=== PATIENT | female | born 1995 | race African-American/Black ===

== ENCOUNTER → 2017-09-28 09:30 | Outpatient (CLI) | payer OTHER, SELFPAY ==
[2017-09-28 11:12] LABS: Hematocrit 31.8 % (36-46); Hemoglobin 11.2 g/dL (12.0-16.0)
[2017-09-28 11:50] LABS: GTT (PREG) 1 Hour PP 50gm Dose 117 mg/dL (76-139)
[2017-09-29 14:07] LABS: HSV 2 IGG AB < 0.90 index (< 0.90); HSV1IGG < 0.90 index (< 0.90)
== END ==
PROVIDERS: PCP Family Medicine; Visit Provider Family Medicine
DX: Z34.03 Encounter for supervision of normal first pregnancy, third trimester (principal); Z3A.28 28 weeks gestation of pregnancy
CPT/HCPCS: 36415; 82950; 85014; 85018; 86695; 86696; 86850; 86900; 86901; 87086

== ENCOUNTER 2017-10-06 09:58 | Emergency (ER) | payer OTHER, SELFPAY | END 2017-10-06 13:42 | disposition home or self-care (01) | LOC: ED 08-16 07:39 | PROVIDERS: Emergency Provider Nurse Practitioner; PCP Family Medicine | DX: S39.012A Strain of muscle, fascia and tendon of lower back, initial encounter (principal); M79.1 Myalgia; V49.40XA Driver injured in collision with unspecified motor vehicles in traffic accident, initial encounter | CPT/HCPCS: 99283 ==

== ENCOUNTER 2017-10-06 09:58 | Emergency (ER) | payer OTHER, SELFPAY ==
[2017-10-06 10:03] VITALS: BP 119/69; PULSE 63; RESP 18; TEMP 36.7; O2SAT 97
[2017-10-06 10:59] VITALS: BP 114/64; PULSE 71; RESP 14; O2SAT 99
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
[2017-10-06 13:37] VITALS: BP 115/60; PULSE 72; RESP 15; O2SAT 100
--- NOTE | 2017-10-06 16:55 | PM.PROC.1 ---
Procedures Date/Time Date of procedure: 10/06/17 Time of procedure: 16:55
== END 2017-10-06 13:42 | disposition home or self-care (01) ==
PROVIDERS: Emergency Provider Nurse Practitioner; PCP Family Medicine
DX: S39.012A Strain of muscle, fascia and tendon of lower back, initial encounter (principal); M79.1 Myalgia; V49.40XA Driver injured in collision with unspecified motor vehicles in traffic accident, initial encounter
CPT/HCPCS: 99283

== ENCOUNTER → 2017-11-10 09:49 | Outpatient (CLI) | payer OTHER, SELFPAY ==
--- NOTE | 2017-11-10 09:51 | DI.US.S_ITS ---
PROCEDURE: US OB LIMITED INDICATIONS: MACROSOMIA OUTSIDE/PRIOR DATING DATA: Last menstrual period (LMP): 03/19/17. LMP-based estimated date of delivery (DANILO): 12/24/17. First dating scan (date and location): 08/05/17. Estimated date of delivery (DANILO) from first dating scan: 12/18/17. TECHNIQUE: Real-time scanning was performed of the fetus, with image documentation and biometric measurements. COMPARISON: [facility], , OB COMPLETE, 08/05/2017, 8:56. FINDINGS: General: A single living intrauterine gestation is present. Presentation: Vertex. Placenta: Placental position is anterior, without previa. Lower placental edge 2 cm or less from internal cervical os qualifies as low lying placenta. Amniotic fluid index: 9 cm, normal range is 5-24 cm. heart rate: 140 beats per minute. Maternal cervical canal: Not well-seen. biometrics: Biparietal diameter: 8.5 cm 34 weeks one day Head circumference: 29.8 cm 33 weeks zero days Abdominal circumference: 28.3 cm 32 weeks 3 days Femur length: 6.5 cm 33 weeks 5 days Estimated gestational age from initial scan: 34 weeks 4 days Composite gestational age from present scan: 33 weeks 2 days Estimated weight and percentile: 2094g 10th percentile. Previous weight was 386 g, 94th percentile Measurement variability for biometric dating: +/- 7 days from 14 weeks to 15 weeks 6 days gestation, +/- 10 days from 16 weeks to 21 weeks 6 days gestation, +/- 2 weeks from 22 weeks to 27 weeks 6 days gestation, +/- 3 weeks for 28 weeks gestation or later. weight reference: 4500 g or EFW >90/95% is considered macrosomia or large for gestational age. EFW <10% is small for gestational age. EFW 5% or less is considered intra-uterine growth restriction. Other: Severe right maternal hydronephrosis is present.. IMPRESSION: 1. Single live intrauterine with ultrasound gestational age day of 33 weeks 2 days compared to 34 weeks 4 days from initial ultrasound. Ultrasound DANILO is unchanged at 12/18/17. 2. It is noted on prior exam dated 08/05/17 at weight is at the 94th percentile. Today's exam demonstrates weight at the 10th percentile concerning for intrauterine growth restriction. Clinical and interval imaging followup is recommended. Dictated by: Chanda Candelario M.D. on 11/10/2017 at 13:40 Approved by: Chanda Candelario M.D. on 11/10/2017 at 13:46
== END ==
PROVIDERS: PCP Family Medicine; Visit Provider Family Medicine
DX: O36.63X0 Maternal care for excessive fetal growth, third trimester, not applicable or unspecified (principal); Z3A.33 33 weeks gestation of pregnancy
CPT/HCPCS: 76815

== ENCOUNTER → 2017-12-07 14:51 | Outpatient (CLI) | payer OTHER, SELFPAY ==
[2017-12-08 14:21] LABS: Strep Grp B PCR POS for Grp B Strep
== END ==
PROVIDERS: PCP Family Medicine; Visit Provider Family Medicine
DX: Z3A.36 36 weeks gestation of pregnancy (principal)
CPT/HCPCS: 87653

== ENCOUNTER 2017-12-12 02:49 | Inpatient (IN) | payer OTHER, SELFPAY ==
[2017-12-12 03:38] VITALS: BP 119/76
[2017-12-12 03:44] LABS: Add Manual Diff / Slide Review NO; Basophils Percent Auto 0.3 % (0-2); Eosinophils Percent Auto 0.5 % (2-4); Hematocrit 38.1 % (36-46); Hemoglobin 13.4 g/dL (12.0-16.0); Lymphocytes Percent Auto 9.4 % (25-40); Mean Corpuscular HGB Conc 35.2 % (30-36); Mean Corpuscular Hemoglobin 32.7 PG (26-34); Mean Corpuscular Volume 92.9 fL (80-100); Neutrophils Absolute Auto 7700 /uL (3000-5900); Neutrophils Percent Auto 85.8 % (50-75); Platelet Count 203 X10^3/uL (150-400); Red Cell Distribution Width 11.9 % (11.6-14.8); White Blood Cell Count 8.9 X10^3/uL (4.5-11.0)
[2017-12-12] MEDS: LACTATED RINGERS 1,000 ML 125 ML IV (03:45)
[2017-12-12] MEDS: PENICILLIN G POTASSIUM 5,000,000 UNIT in DEXTROSE 5% IN WATER 250 ML IV (04:00)
--- NOTE | 2017-12-12 07:37 | P.HPOB_ITS ---
OB HPI Date/Time Date of admission: 12/12/17 Date Patient Seen: 12/12/17 Time Patient Seen: 07:34 History of Present Illness Chief complaint: EVALUATION OF LABOR : 1 Para: 0 Estimated Date of Delivery: 12/24/17 Estimated Gestational Age (weeks): 38w2d Narrative: Rachael Boggs is a 22 year old female, at 38 and 2 weeks gestation in active labor. On presentation to the center patient was 5 cm and requesting an epidural. At 5 AM patient was 8 cm with a bulging bag. Patient received regular care. Transferred care from the [facility] at 27 weeks. 20 wk US showed fetus at the 94% for weight with otherwise normal anatomy. Follow up US at 34 weeks showed fetus at 10% for weight. Due to the large discrepancy in growth, patient saw Maternal Medicine who felt growth was appropriate and did not recommend further work up. Remainder of unremarkable. History of Present care: good care Dating criteria: LMP confirmed by 1st trimester US Ultrasounds: normal mid trimester US (Normal anatomy) Obstetrical complications: none Medical complications: none Preadmission Labs Blood type: O (+) positive -: Antibody screen: negative, GBS status: positive, HBsAG: negative, HIV: negative, HSV 1: negative, HSV 2: negative and RPR/VDLR: negative -: Chlamydia screen: not detected and Gonorrhea screen: not detected -: Rubella: immune and Varicella: immune HCT: 36 HCAB: negative PAP: Normal Quad screen: Normal Urine: Negative 1 hr GTT: 117 Evaluation Evaluation Baseline heart rate: 135 Variability: Moderate (11-25) monitor accelerations: Present monitor decelerations: Variable (Rare, small variables) Contraction Frequency (minutes): 3 Uterine Contraction Intensity: Strong/Firm Category of Tracing: II Cervical dilation (cm): 10 Cervical effacement (%): 100 station: 0 Laboratory results: Laboratory Tests 12/12/17 12/12/17 03:30 03:30 WBC 8.9 RBC 4.10 Hgb 13.4 Hct 38.1 MCV 92.9 MCH 32.7 MCHC 35.2 RDW 11.9 Plt Count 203 Neut % (Auto) 85.8 H Lymph % (Auto) 9.4 L [place] % (Auto) 4.0 Eos % (Auto) 0.5 L Baso % (Auto) 0.3 Neut # (Auto) 7700 H Blood Type O Positive Antibody Screen Negative PFSH Medical History H/O wisdom tooth extraction (Acute) Family History Father Diabetes mellitus Social History marital status: unmarried,living together occupational status: employed Smoking Status: Never smoker alcohol intake: former substance use type: does not use additional social history: Currently in the [employer] along with boyfriend Meds Home Medications Medication Instructions Recorded Confirmed Type [id number] fum-folic 1 tab PO DAILY 10/06/17 10/06/17 History ranitidine HCl 150 mg PO BID 10/06/17 10/06/17 History Allergies Allergy/AdvReac Type Severity Reaction Status Date / Time No Known Drug Allergies Allergy Verified 12/12/17 03:14 Review of Systems Review of Systems All systems reviewed & are unremarkable except as noted in HPI and below Exam Vital Signs (past 8 hours): - 12/12/17 03:38 Blood Pressure 119/76 Const General: healthy appearing and comfortable Orientation: alert, awake and oriented x3 HENMT Head: normal to inspection Ears: hearing grossly normal bilaterally Nose: external nose normal Face and sinus: normal facial exam Mouth: oral mucosae normal Teeth and gingiva: dentition normal Throat: posterior oropharynx normal Eyes General: appearance normal, both eyes and all related structures Alignment and Position: alignment normal Conjunctivae: conjunctivae normal EOM: EOM intact bilaterally Neck Neck: normal visual inspection Resp Effort & Inspection: normal respiratory effort Auscultation: clear to auscultation bilaterally Cardio Rate: regular rate Rhythm: regular rhythm Manual OB Exam: dilated 10, effaced fully and station 0 Presentation: vertex Estimated Weight (lbs): 6 Amniotic Fluid: clear Extrem General: normal to inspection and no pedal edema Objective Labs Result Diagrams: 12/12/17 03:30 Labs: Laboratory Results - last 24 hr 12/12/17 12/12/17 03:30 03:30 WBC 8.9 RBC 4.10 Hgb 13.4 Hct 38.1 MCV 92.9 MCH 32.7 MCHC 35.2 RDW 11.9 Plt Count 203 Neut % (Auto) 85.8 H Lymph % (Auto) 9.4 L [place] % (Auto) 4.0 Eos % (Auto) 0.5 L Baso % (Auto) 0.3 Neut # (Auto) 7700 H Blood Type O Positive Antibody Screen Negative Assessment and Plan (1) 38 weeks gestation of : Current visit: Yes Status: Acute (2) Group B streptococcal infection during : Current visit: Yes Status: Acute Plan: Plan: 22 year old at 38+2 wks in active labor. GBS positive. AROM clear. Plan - Epidural working well - GBS prophylaxis - Expectant management, anticipate
[2017-12-12] MEDS: PENICILLIN G POTASSIUM 3,000,000 UNIT/50 ML FROZ.PIGGY 100 UNIT IV (07:49)
--- NOTE | 2017-12-12 09:59 | P.PCNOB_ITS ---
Delivery date: 12/12/17 Intrapartal events: None Induction method: none Delivery augmentation: rupture of membranes Delivery monitor: external FHT Route of delivery: Laceration description: Labial (First-degree right labial laceration) Delivery repair: vicryl Estimated blood loss (mL): 250 Anesthesia type: Epidural Narrative: BRIEF HISTORY: Patient is a 22-year-old now 1 at 38w2d weeks who gave on 12/12/17 at 9:26 a.m. DANILO: 12/24/17 Hospital problems: 38 weeks of GBS positive Epidural anesthesia STAGE I: Labor Regular contractions began at home at 11:00 p.m. on 12/11/17. When patient arrived to the center she was 5 cm dilated. Labor progressed spontaneously to complete at 8:28 a.m.. AROM performed at 8:28 a.m. with clear fluid. Epidural analgesia. heart tones category two throughout the first stage of labor due to intermittent variable decelerations. STAGE II: Delivery The second stage of labor lasted 58 min. Delivery occurred at 9:26 a.m.. was vertex and right occiput posterior without a nuchal cord though the cord was folded near the face. Infant was vigorous at with Apgars of nine and nine at one and 5 min. heart tones were category two throughout the second stage of labor due to variable decelerations with pushing. STAGE III: Placenta/Cord The third stage of labor lasted 3 min. Placenta delivered spontaneously at 9: 29 a.m. after active management intact with a three-vessel cord. Calcifications noted throughout placenta. There was a first-degree right labial laceration which was repaired with 4-0 Vicryl. Hemostasis achieved. EBL: 250 mL. Needle and sponge counts were correct. The vagina was inspected and no items were left in situ. Patient was doing well with Leonel , her and boyfriend at bedside.
[2017-12-12] MEDS: IBUPROFEN 600 MG TABLET PO ×2 (11:49→18:36)
[2017-12-12] MEDS: DOCUSATE 250 MG CAPSULE PO (11:50)
[2017-12-12] MEDS: DERMOPLAST SPRAY 20% 60 ML 1 SPRAY TOP (18:41)
[2017-12-12] MEDS: OXYCODONE/ACETAMINOPHEN 5/325 TABLET 1 TAB PO (23:35)
[2017-12-12] MEDS: LANOLIN OINT 7 GM 1 APPLIC TOP (23:38)
[2017-12-13] MEDS: DOCUSATE 250 MG CAPSULE PO (07:55)
[2017-12-13] MEDS: IBUPROFEN 600 MG TABLET PO ×2 (07:55→14:23)
[2017-12-13] MEDS: OXYCODONE/ACETAMINOPHEN 5/325 TABLET 1 TAB PO (11:24)
[2017-12-13 13:08] VITALS: BP 119/76; PULSE 76; RESP 16; TEMP 36.6
--- NOTE | 2017-12-13 13:10 | P.DS_ITS ---
Discharge Providers Date of admission: 12/12/17 03:12 Primary care physician: Nery Painter DO Consults: 12/12/17 10:21 Consult to Auto Air Conditioning Installer Routine Comment: Discharge provider: Nery Painter DO Discharge Date: 12/13/17 Summary Date Patient Seen: 12/13/17 Time Patient Seen: 12:25 Discharge Diagnosis (1) 38 weeks gestation of : Status: Acute (2) Group B streptococcal infection during : Status: Acute (3) (spontaneous vaginal delivery): Status: Acute Status at Discharge Functional status at discharge: independent ambulation Overall status at discharge: patient is back to baseline Time Spent with Patient Total time spent providing and/or coordinating discharge services: Less than 30 minutes Objective Labs Result Diagrams: 12/12/17 03:30 Discharge Plan Discharge Plan Patient Disposition: Home, Self-Care Discharge Med Rec/Prescriptions Prescriptions: New ibuprofen 600 mg Tablet 600 mg PO Q6HR PRN (Reason: Pain, Mild (1-3)) Qty: 30 RF: 0 docusate sodium 250 mg Capsule 250 mg PO DAILY Qty: 30 RF: 0 Continue ranitidine HCl 150 mg tablet 150 mg PO BID RF: 0 [id number] fum-folic 27 mg iron- 800 mcg tablet 1 tab PO DAILY RF: 0 Follow up/Referrals: Nery Painter DO [Primary Care Provider] - 6 Weeks (please follow up with Dr. Painter on ) Visit Report/Discharge Packet Stand Alone Forms: Discharge: Care Visit Report Forms: Stroke Signs & Symptoms Discharge Data Primary Care Provider: Nery Painter Attending Provider: Nery Painter Admit Date/Time: 12/12/17 03:12 Discharges patient from system. Discharge Date/Time: 12/13/17 14:34
== END 2017-12-13 14:34 | disposition home or self-care (01) | DRG 775 ==
PROVIDERS: Admitting Provider Family Medicine; PCP Family Medicine; Visit Provider Family Medicine
DX: O99.824 Streptococcus B carrier state complicating childbirth (principal); Z3A.38 38 weeks gestation of pregnancy; Z37.0 Single live birth; O70.0 First degree perineal laceration during delivery
CPT/HCPCS: 01967; 59050; 59410; 85025; 86850; 86900; 86901; G0378; G0379; J2540

== ENCOUNTER 2019-06-16 10:25 | Emergency (ER) | payer OTHER, SELFPAY ==
[2019-06-16 10:34] VITALS: BP 116/71; PULSE 73; RESP 16; TEMP 36.8; O2SAT 100; BMI 24.1
--- NOTE | 2019-06-16 11:09 | ED.URI ---
HPI - URI/Sore Throat General Chief Complaint: Upper Respiratory Symptoms Stated Complaint: strep Time Seen by Provider: 06/16/19 11:01 Source: patient Mode of arrival: Ambulatory History of Present Illness HPI Narrative: CC: Sore throat HPI: The patient is a 23-year-old female who presents to the emergency department with a sore throat that she believes is strep throat. She states that it feels today the same as it did 6 months ago when she had strep throat. The patient states that the sore throat developed Wednesday and woke her from sleep. She denies a history of diabetes mellitus or asthma. She does not smoke cigarettes use marijuana but does drink alcohol. She has had no fever chills sweats nasal drainage sinus drainage. She received her influenza vaccine earlier in the fall. She denies any headache chest pain shortness of breath cough palpitations dizziness muscle aches or joint aches back aches. She does complain that her neck however aches. She has had no nausea no vomiting no diarrhea no troubles urinating. Related Data Home Medications Medication Instructions Recorded Confirmed bupropion HCl 100 mg PO BID 06/16/19 06/16/19 fluoxetine 20 mg PO DAILY 06/16/19 06/16/19 norethindrone-e.estradiol-iron 1 tab PO DAILY 06/16/19 06/16/19 [ FE .09/29 (28)] trazodone 100 mg PO BEDTIME 06/16/19 06/16/19 Previous Rx's Medication Instructions Recorded amoxicillin 500 mg PO TID #30 cap 06/16/19 ibuprofen 600 mg PO Q6H PRN #20 tab 06/16/19 Allergies Allergy/AdvReac Type Severity Reaction Status Date / Time No Known Drug Allergies Allergy Verified 06/16/19 10:34 Review of Systems Review of Systems Narrative: Review of systems were negative except for those mentioned in the history of present illness. Patient History Medical History Spontaneous vaginal delivery (Resolved) Surgical History H/O wisdom tooth extraction (Acute) Family History Father Diabetes mellitus Social History marital status: unmarried,living together education level: high school occupational status: employed Smoking Status: Never smoker alcohol intake: former substance use type: does not use additional social history: Currently in the [place] along with boyfriend Smoking Status: Never smoker Substance Use Type: does not use Exam Narrative Exam Narrative: PHYSICAL EXAM: CONSTITUTIONAL: Awake, Alert, Oriented, Coherent, Cooperative in NAD. Does not appear toxic or ill. HEAD: AT/NC EENT: PERRL, FROM of eyes, no discharge. No drainage from the ears, Tympanic membranes intact bilaterally, withou erythema, clear EAC No epistaxis or nasal drainage Oral mucosa is moist and pink, posterior pharynx is without any significant erythema or exudate. NECK: Supple, no obvious JVD, Trachea is midline without stridor, no palpable LN or masses. The patient's anterior cervical triangles were tender to palpation without discrete mass being palpable. SPINE: No gross deformity, no palpable tenderness of the cervical, thoracic, lumbar or sacral spine. No CVA tenderness. THORAX: No deformity, retractions, chest wall tenderness,.. LUNGS: Clear with symmetrical breath sounds without respiratory distress HEART: Normal heart tones, regular rhythm and rate without murmur. ABDOMEN: Soft, non-tender, normal bowel sounds without guarding, rebound, rigidity or palpable mass. EXTREMITIES: No edema, cyanosis, deformity or tenderness. SKIN: No rash, bruising, petechiae or purpura. NEURO: Awake, alert, oriented, conversive, no focal facial asymmetry/cranial nerves II-XII are symmetrical, moves all 4 extremities and is ambulatory Initial Vital Signs Initial Vital Signs: Vital Signs Temperature 98.2 F 06/16/19 10:34 Pulse Rate 73 06/16/19 10:34 Respiratory Rate 16 06/16/19 10:34 Blood Pressure 116/71 06/16/19 10:34 Pulse Oximetry 100 06/16/19 10:34 Course Course Course Narrative: The patient is 23-year-old female who presented to the emergency department with a sore throat thinking that she had strep throat. A rapid strep screen was performed at which was positive and the patient was treated with amoxicillin. She was given a prescription for amoxicillin 500 mg 3 times a day for the next 10 days. She was advised to follow-up with her primary care physician. She was also given a prescription for ibuprofen 600 mg to 6 hours as needed for pain discomfort and fever. Orders Ordered: Discontinued Medications Amoxicillin (Trimox) 500 mg PO NOW ONE Stop: 06/16/19 11:12 Last Admin: 06/16/19 11:34 Dose: 500 mg Documented by: TARYN Vital Signs Vital signs: Vital Signs - 8 hr 06/16/19 10:34 Temperature 98.2 F Pulse Rate 73 Respiratory Rate 16 Blood Pressure 116/71 Pulse Oximetry 100 MDM - URI/Sore Throat Medical Records Attestation: I reviewed the patient's medical records. Lab Data Attestation: I reviewed the patient's lab results. Labs: Point of Care Testing Rapid Strep A Positive Discharge Plan Departure Patient Disposition: Home Clinical Impression: Strep pharyngitis Discharge Date/Time: 06/16/19 11:38 Instructions: DI for Strep Throat Activity Restrictions/Additional Instructions: You guille gragle with hot salt water: 1 tsp of salt in a 10 oz glass of water. ibuprofen 600 mg orally every 6 hours for pain discomfort aches and headache. Take the amoxicillin 3 times a day until gone. Follow up with her primary care physician as needed. Prescriptions: New amoxicillin 500 mg capsule 500 mg PO TID Qty: 30 RF: 0 ibuprofen 600 mg tablet 600 mg PO Q6H PRN (Reason: fever or pain) Qty: 20 RF: 0 No Action norethindrone-e.estradiol-iron [ ()] 1.5 mg-30 mcg (21)/75 mg (7) tablet 1 tab PO DAILY RF: 0 trazodone 50 mg tablet 100 mg PO BEDTIME RF: 0 bupropion HCl 100 mg tablet 100 mg PO BID RF: 0 fluoxetine 20 mg capsule 20 mg PO DAILY RF: 0 Referrals: Nery Painter DO [Primary Care Provider] -
[2019-06-16] MEDS: AMOXICILLIN 250 MG CAPSULE 500 MG PO (11:34)
== END 2019-06-16 11:38 | disposition home or self-care (01) ==
PROVIDERS: Emergency Provider Emergency Medicine; PCP Family Medicine
DX: J02.0 Streptococcal pharyngitis (principal)
CPT/HCPCS: 87880; 99283

== ENCOUNTER 2019-07-26 09:06 | Emergency (ER) | payer OTHER, SELFPAY ==
--- NOTE | 2019-07-26 08:31 | DI.US.S_ITS ---
PROCEDURE: US OB <= 14 WEEKS FETUS INDICATIONS: 10 weeks EGA vag bleeding OUTSIDE/PRIOR DATING DATA: Last menstrual period (LMP): 05/12/19. LMP-based estimated date of delivery (DANILO): 02/16/20. First dating scan (date and location): 07/26/19, [facility] Estimated date of delivery (DANILO) from first dating scan: 02/26/20. TECHNIQUE: Real-time scanning was performed of the fetus and maternal pelvic organs, with image documentation. Endovaginal scanning was also performed to better visualize the fetus and maternal ovaries. COMPARISON: None. FINDINGS: Embryo: Nonviable first trimester intrauterine with crown-rump length measuring 9 weeks 2 days without heart Measurement variability in dating: +/- 4 weeks by LMP, +/- 7 days by mean sac diameter (use before 6 weeks gestation if crown-rump length not able to be measured), +/- 5 days by crown-rump length (up to 8 weeks 6 days gestation), +/- 7 days by crown-rump length (up to 13 weeks 6 days gestation). Maternal organs: Ovaries not seen. Limited images through the kidneys demonstrate no hydronephrosis. IMPRESSION: Nonviable first trimester intrauterine with crown-rump length without heart beat. Comment: Preliminary findings were reported by the brick and tile making machine operator to the referring provider at the time of study completion. Comment: Findings were discussed with Dr. Mtz at the time of study dictation. Dictated by: Ravin Hernandez M.D. on 07/26/2019 at 10:15 Approved by: Ravin Hernandez M.D. on 07/26/2019 at 10:25
[2019-07-26 09:10] VITALS: BP 114/64; PULSE 105; RESP 14; TEMP 37.4; O2SAT 98; BMI 24.1
--- NOTE | 2019-07-26 10:22 | PC.NURSE ---
pt states she has been spotting since she was six weeks but it was more last night.
[2019-07-26 10:35] VITALS: BP 120/69; PULSE 93; RESP 18; O2SAT 100
[2019-07-26 10:44] LABS: HCG Quantitative /Beta subunit 47149 mIU/mL
--- NOTE | 2019-07-26 10:57 | ED_ITS ---
HPI - General Adult General Chief complaint: Vaginal Bleeding Stated complaint: Vaginal Bleeding, 10 Weeks Time Seen by Provider: 07/26/19 09:10 Source: patient Mode of arrival: Ambulatory Limitations: no limitations History of Present Illness HPI narrative: 24-year-old female. at approximately 10 weeks EGA. Here for evaluation of vaginal bleeding. She states she started having bleeding at approximately 6 weeks EGA. Saw her OB provider. Ultrasound was performed. She states that she was told she had a ?blood clot? and that was with the bleeding was from. States that last evening the cramping and the bleeding got worse. She went to the [employer] to a drive-through screening for the novel lewis virus issue that is going on right now because she has had a fever for the past couple days. She told the provider there that she was having bleeding and cramping. The clinic is closed there. They have no ultrasound so she was sent here to the emergency department for an ultrasound. Related Data Home Medications Medication Instructions Recorded Confirmed bupropion HCl 100 mg PO BID 06/16/19 06/16/19 fluoxetine 20 mg PO DAILY 06/16/19 06/16/19 norethindrone-e.estradiol-iron 1 tab PO DAILY 06/16/19 06/16/19 [June FE (28)] trazodone 100 mg PO BEDTIME 06/16/19 06/16/19 Previous Rx's Medication Instructions Recorded amoxicillin 500 mg PO TID #30 cap 06/16/19 ibuprofen 600 mg PO Q6H PRN #20 tab 06/16/19 acetaminophen-codeine 1 tab PO Q6H PRN #6 tab 07/26/19 [Tylenol-Codeine #3] Allergies Allergy/AdvReac Type Severity Reaction Status Date / Time No Known Drug Allergies Allergy Verified 07/26/19 09:13 Review of Systems Constitutional Constitutional: Reports fever(s) Gastrointestinal Gastrointestinal: Denies change in stool character, Reports cramping and Denies vomiting Genitourinary Comments: Vaginal bleeding Musculoskeletal Musculoskeletal: Denies myalgias and Denies arthralgias Integumentary/Breasts Skin/Breast: Denies lesions and Denies rash Neurologic Neurologic: Denies behavioral changes Psychiatric Psychiatric: Denies behavioral changes Hematologic/Lymphatic Hematologic/Lymphatic: Denies easy bleeding and Denies easy bruising Patient History Medical History Spontaneous vaginal delivery (Resolved) Social History marital status: unmarried,living together education level: high school occupational status: employed Smoking Status: Never smoker alcohol intake: former substance use type: does not use additional social history: Currently in the [place] along with boyfriend Smoking Status: Never smoker Substance Use Type: does not use Exam Initial Vital Signs Initial Vital Signs: Vital Signs Temperature 99.4 F 07/26/19 09:10 Pulse Rate 105 H 07/26/19 09:10 Respiratory Rate 14 07/26/19 09:10 Blood Pressure 114/64 07/26/19 09:10 Pulse Oximetry 98 07/26/19 09:10 Const General: cooperative and comfortable Resp Effort & Inspection: normal respiratory effort Skin Rashes: no rashes Neuro General: alert and awake Cognition: normal cognition Speech: speech normal Extrem General: normal to inspection Psych Appearance: grossly normal and well kempt Course Orders Ordered: ED Orders 07/26/19 08:31 US OB <= 14 weeks fetus Stat 07/26/19 09:38 ABO RH Type Stat HCG Quantitative /Beta subunit Stat Vital Signs Vital signs: Vital Signs - 8 hr 07/26/19 09:10 07/26/19 10:35 Temperature 99.4 F Pulse Rate 105 H 93 H Respiratory Rate 14 18 Blood Pressure 114/64 Blood Pressure [Right Arm] 120/69 Pulse Oximetry 98 100 Medical Decision Making Lab Data Lab results reviewed: Yes I reviewed the patient's lab results. Labs: Lab Results 07/26/19 07/26/19 Range/Units 09:38 09:38 HCG, Quant [id number] mIU/mL Blood Type O Positive Imaging Data US - OB: Radiologist's Impression: Received a call from Radiology stating that patient has intrauterine demise MDM Narrative Medical decision making narrative: Nontoxic. Had a discussion with the patient regarding her symptoms and the ultrasound findings. We did discuss return p recautions and follow-up instructions. She is Rh positive. No indication for RhoGAM. Patient expressed understanding and agreement plan. Discharge Plan Departure Patient Disposition: Home Clinical Impression: Miscarriage Instructions: Dealing With Miscarriage, DI for Miscarriage Activity Restrictions/Additional Instructions: Unfortunately the ultrasound today given your presenting symptoms are consistent with a miscarriage. I would expect cramping and bleeding over the next couple days. If you are bleeding through multiple pads an hour for multiple hours or you develop fevers or pain that is not controlled please return to the emergency department. Prescriptions: New acetaminophen-codeine [Tylenol-Codeine #3] 300-30 mg tablet 1 tab PO Q6H PRN (Reason: pain) Qty: 6 RF: 0 No Action norethindrone-e.estradiol-iron [ FE (28)] 1.5 mg-30 mcg (21)/75 mg (7) tablet 1 tab PO DAILY RF: 0 trazodone 50 mg tablet 100 mg PO BEDTIME RF: 0 bupropion HCl 100 mg tablet 100 mg PO BID RF: 0 fluoxetine 20 mg capsule 20 mg PO DAILY RF: 0 amoxicillin 500 mg capsule 500 mg PO TID Qty: 30 RF: 0 ibuprofen 600 mg tablet 600 mg PO Q6H PRN (Reason: fever or pain) Qty: 20 RF: 0 Referrals: Nery Painter DO [Primary Care Provider] -
== END 2019-07-26 11:15 | disposition home or self-care (01) ==
PROVIDERS: Emergency Provider Emergency Medicine; PCP Family Medicine
DX: O03.9 Complete or unspecified spontaneous abortion without complication (principal)
CPT/HCPCS: 36415; 76801; 76817; 84702; 86900; 86901; 99284